=== PATIENT | male | born 1950 | race Caucasian/White ===

== ENCOUNTER → 2019-03-05 | Day surgery (SDC) | payer OTHER, MEDICARE ==
[~2019-03-05] VITALS: Ht 177.8 cm; Wt 113.4 kg
[~2019-03-05] MED LIST: ADVIL200 M1 PO; ALBUTEROL SULF 0.083% NEB SOLN 3 ML NEB NEB STA; ASPIR 8181 MG PO; ASPIRIN 81 MG CHEW TAB PO ONE; CETIRIZINE HCL10 MG PO; FUROSEMIDE INJ 10 MG/ML 4 ML VIAL IV NR; FUROSEMIDE INJ 10 MG/ML 4 ML VIAL ONE; HEPARIN 25,000U/0.45% NS 250ML 250 ML IV SCH; HEPARIN SOD (PORCINE) 1000 UNIT/ML 10ML MDV IV ONE; IBUPROFEN200 MG PO; IPRATROPIUM BROMIDE 0.02% 2.5 ML NEB NEB STA; KLOR-CON 1010 MEQ PO; LASIX40 MG PO; LISINOPRIL10 MG PO; MAGNESIUM SULFATE 2GM/50ML 50 ML IV STA; METHYLPREDNISOLONE SOD SUCC 125 MG/2ML VIAL IV STA
--- NOTE | 2019-03-05 07:05 | NUR ---
DR. KRYS CARR AT [facility] BEDSIDE
[2019-03-05 07:08] LABS: BASOPHILS # (AUTO) 0.2 (0.0-0.1); BASOPHILS % 0.8 % (0.0-1.0); EOSINOPHILS # (AUTO) 0.4 (0.0-0.4); EOSINOPHILS % 2.3 % (0.0-6.0); HEMATOCRIT 45.6 % (38.2-49.6); HEMOGLOBIN 15.3 g/dL (14.0-18.0); LYMPHOCYTES % 27.2 % (18.0-39.1); MEAN CORPUSCULAR HGB CONC 33.6 g/dL (31-35); MEAN CORPUSCULAR VOLUME 95.4 fL (81-99); MONOCYTES # (AUTO) 2.1 (0.2-0.8); MONOCYTES % 11.6 % (4.4-11.3); NEUTROPHILS # (AUTO) 10.3 (2.1-6.9); NEUTROPHILS % 56.5 % (38.7-80.0); PLATELET COUNT 240 x10e3/uL (140-360); RED BLOOD COUNT 4.78 x10e6/uL (4.3-5.7); RED CELL DISTRIBUTION WIDTH 12.4 % (11.7-14.4)
--- NOTE | 2019-03-05 07:08 | NUR ---
CORRUGATED BOX MACHINE OPERATOR STAFF AT PTS BEDSIDE
--- NOTE | 2019-03-05 07:13 | NUR ---
RESP CALLED FOR TRANSPORT TO PATIENT [facility]
--- NOTE | 2019-03-05 07:16 | Diagnostic Imaging Report ---
Examination: Single AP view of the chest. COMPARISON: 02/26/2019 INDICATION: Chest pain, shortness of breath, rapid response DISCUSSION: The lungs remain well-inflated. Interval development of prominence of the pulmonary interstitium a lower lobe predominance. Multiple juxtapleural Ariana B lines. No focal consolidation, sizable effusion, or pneumothorax. Stable cardiomediastinal contour. No acute osseous abnormality. IMPRESSION: Interval development of interstitial pulmonary edema relative to 02/26/2019. Signed by: Dr. Javier Ferrera M.D. on 03/05/2019 7:12 AM
--- NOTE | 2019-03-05 07:20 | NUR ---
PT DEPARTED UNIT WITH BIPAP IN PLACE, CLOTHES DESIGNER STAFF/RN AND RT ASSISTING
[2019-03-05 07:32] LABS: ALBUMIN 4.2 g/dL (3.5-5.0); ALBUMIN/GLOBULIN RATIO 1.4 (0.8-2.0); ANION GAP 20.1 mmol/L (8-16); CALCIUM 9.5 mg/dL (8.4-10.2); CREATININE, SERUM 2.04 mg/dL (0.72-1.25); POTASSIUM 4.1 mmol/L (3.5-5.1)
--- NOTE | 2019-03-05 07:34 | NUR ---
dr ezequiel morris informed of lactic acid 33.8.
[2019-03-05 07:40] LABS: CREATINE KINASE MB 7.3 ng/mL (0-5.0)
[2019-03-05 08:05] LABS: B-TYPE NATRIURETIC PEPTIDE2 601.9 pg/mL (0-100)
[2019-03-05 09:09] LABS: ABG PCO2 50 mmHg (41-51); ABG PH 7.28 (7.31-7.41)
[2019-03-05 09:10] LABS: ABG HCO3 24 mmol/L (23-28); ABG PO2 602 mmHg (80-105)
--- NOTE | 2019-03-05 10:54 | Pre Op History & Physical ---
PRIMARY CARE DOCTOR: Dr. Lena Carvalho. REASON FOR ADMISSION: Shortness of breath. HISTORY OF PRESENT ILLNESS: This is a 68-year-old patient of Dr. Javier Mak with abnormal stress test. The patient was scheduled for a left heart catheterization today. However, on the way there, the patient developed shortness of breath, that is why he came over here. The patient has known systolic CHF as well with an EF of 30%. The patient underwent left heart catheterization just now and was found to have left main disease, and is the process of being transferring out for bypass surgery. At this time, the patient is on a balloon pump. The patient was seen and examined in microbiological laboratory technician recovery room. At this time, the patient denies any chest pain. No nausea, no vomiting. The patient is on BiPAP for his breathing. One dose of IV Lasix was given in the emergency room. PAST MEDICAL HISTORY: 1. CHF. 2. Hypertension. MEDICATIONS: Please see medication reconciliation form. ALLERGIES: NONE. SOCIAL HISTORY: He is currently smoking. FAMILY HISTORY: Heart disease. REVIEW OF SYSTEMS: 10-point review of system reviewed, nothing else significant other than what is stated in HPI. PHYSICAL EXAMINATION: VITAL SIGNS: Temperature 97.7, pulse 122, respiratory rate 22, and blood pressure 144/97. GENERAL: No acute distress. SKIN: No rash. HEENT: Anicteric. Oropharynx is clear. NECK: Supple. LUNGS: Decreased breath sounds. HEART: Tachycardic. Normal S1, S2. ABDOMEN: Soft, nondistended. : Right groin dry. No hematoma. EXTREMITIES: No edema. MUSCULOSKELETAL: Painless range of motion. NEUROLOGICAL: Alert and oriented x3. Cranial in II through XII grossly intact. PSYCHIATRIC: No hallucination. LABORATORY DATA: White count 18, hemoglobin 15, and platelet count 240. Creatinine 2.04. Troponin is 0.2. Chest x-ray shows pulmonary edema. EKG shows ischemic changes. ASSESSMENT AND PLAN: 1. Left main disease. The patient is on balloon pump right now. Plan per Dr. Javier Mak. The patient is in the process of being transferring out to higher level care for open-heart surgery. 2. Stage 3 chronic kidney disease. We will need to monitor after contrast exposure. 3. Acute systolic heart failure, status post IV Lasix, currently on balloon pump. We will continue to monitor closely. 4. Gastrointestinal and deep venous thrombosis prophylaxis. No chemical deep venous thrombosis prophylaxis due to recent procedure. I have updated the at the bedside. MD RACHELLE Overton/ENRRIQUE /[id number] cc: [facility]
[2019-03-05 12:05] LABS: EOSINOPHILS % (MANUAL) 4 % (0-7); LYMPHOCYTES % (MANUAL) 21 % (19-48); MONOCYTES % (MANUAL) 5 % (3.4-9.0); MYELOCYTES % (MANUAL) 2 % (0-0); NEUTROPHILS % (MANUAL) 62 % (40-74); PROMYELOCYTES % (MANUAL) 1 % (0-0); RBC MORPHOLOGY COMMENT NORMAL
[2019-03-05 12:06] LABS: ANISOCYTOSIS SLIGHT; PLATELET ESTIMATE ADEQUATE; PLATELET MORPHOLOGY COMMENT FEW GIANT
--- NOTE | 2019-03-05 14:24 | Operative Report ---
DATE OF PROCEDURE: SURGEON: Javier Mak MD PROCEDURES: 1. Left heart catheterization. 2. Intra-aortic balloon pump insertion. INDICATIONS: 1. Coronary artery disease. 2. Acute systolic congestive heart failure. TECHNIQUE: The right groin was draped and prepped in the usual fashion. The area was anesthetized with lidocaine. Standard Seldinger technique was used to place a 6-[place] sheath into the right femoral artery without difficulty. A JL4 catheter was used to selectively engage the left coronary artery. A 3DRC catheter was used to selectively engage the right coronary artery. A pigtail catheter was used to perform a left ventriculogram. The 6-[place] sheath was then exchanged for an 8-[place] sheath and an intra-aortic balloon pump was placed without difficulty. The balloon pump was set to one-to-one counterpulsation. RESULTS: 1. There is an 80% stenosis of the left main trunk. 2. There is a large left anterior descending artery, which had a patent proximal stent and then about a 70% stenosis in its midportion. There was a 90% stenosis at the origin of the diagonal branch. 3. There was a small AV circumflex artery, which gave rise to a large bifurcating obtuse marginal branch. There was 90% stenosis in the AV circumflex artery before the origin of the obtuse marginal branch. 4. There was a large dominant right coronary artery with minimal disease. 5. The left ventriculogram demonstrated hypokinesis of the anterior wall and apex with an overall ejection fraction of 40%. CONCLUSION: The patient has severe three-vessel coronary artery disease with a left main trunk stenosis. Arrangements will need to be made for the patient to be transferred for coronary artery bypass graft. Javier Mak MD D[facility]/MODL /[id number]
--- NOTE | 2019-03-06 02:58 | Discharge Summary ---
FINAL DIAGNOSES: 1. Acute coronary syndrome. 2. Coronary artery disease. 3. Acute systolic congestive heart failure. PROCEDURES PERFORMED: On the patient include: 1. Left heart catheterization. 2. Intra-aortic balloon pump insertion. HOSPITAL COURSE: The patient is a 68-year-old, who came in for an elective heart catheterization, and was noted to be very short of breath. The patient was taken to the emergency room, placed on BiPAP and given some IV Lasix. The patient was then moved from the emergency room to the cardiac labor arbitrator hearing office, where catheterization was completed demonstrating an 80% stenosis in the left main trunk. An intra-aortic balloon pump was placed without difficulty. Arrangements were then made to transfer the patient to [facility] for coronary artery bypass graft. The case is discussed with the cardiovascular surgeon, Dr. Benson. MD PONCHO VoraH/MODL /[id number]
== END | disposition short-term general hospital (02) ==
LOC: ER 06:22 → CATH LAB 07:30 → ER 07:30
PROVIDERS: ATTEND Internal Medicine Cardiovascular Disease
DX: I24.9 Acute ischemic heart disease, unspecified (principal); I25.110 Atherosclerotic heart disease of native coronary artery with unstable angina pectoris; I25.2 Old myocardial infarction; R94.39 Abnormal result of other cardiovascular function study; I13.0 Hypertensive heart and chronic kidney disease with heart failure and stage 1 through stage 4 chronic kidney disease, or unspecified chronic kidney disease; N18.3 Chronic kidney disease, stage 3 (moderate); I50.21 Acute systolic (congestive) heart failure; F17.200 Nicotine dependence, unspecified, uncomplicated; Z79.82 Long term (current) use of aspirin; Z68.35 Body mass index [BMI] 35.0-35.9, adult; Z95.5 Presence of coronary angioplasty implant and graft; Z82.49 Family history of ischemic heart disease and other diseases of the circulatory system
CPT/HCPCS: 33967; 36415; 36600; 71045; 80053; 82550; 82553; 82805; 83605; 83690; 83880; 84484; 85025; 85730; 87040; 87070; 87205; 93005; 93458; 94640; 94660; 99284; C1766; C1769; C2630; J1644; J1940; J2001; J2250; J2930; J3475; J7030; J7040; Q9967; 33970; J3010

== ENCOUNTER → 2019-06-02 | Outpatient (CLI) | payer OTHER, MEDICARE ==
[~2019-06-02] MED LIST changes: -ALBUTEROL SULF 0.083% NEB SOLN 3 ML NEB NEB STA; -ASPIRIN 81 MG CHEW TAB PO ONE; -FUROSEMIDE INJ 10 MG/ML 4 ML VIAL IV NR; -FUROSEMIDE INJ 10 MG/ML 4 ML VIAL ONE; -HEPARIN 25,000U/0.45% NS 250ML 250 ML IV SCH; -HEPARIN SOD (PORCINE) 1000 UNIT/ML 10ML MDV IV ONE; -IPRATROPIUM BROMIDE 0.02% 2.5 ML NEB NEB STA; -MAGNESIUM SULFATE 2GM/50ML 50 ML IV STA; -METHYLPREDNISOLONE SOD SUCC 125 MG/2ML VIAL IV STA
--- NOTE | 2019-06-02 10:19 | Diagnostic Imaging Report ---
Chest, 2 views, 06/02/2019. History: Shortness of breath. Comparison: None available. Findings: The cardiomediastinal silhouette and pulmonary vasculature are within normal limits. The lungs are clear without evidence of consolidation or pleural effusion. Median sternotomy wires are present. There are no acute osseous or soft tissue abnormalities. Impression: No acute cardiopulmonary abnormality. Signed by: Chase Ramos on 06/02/2019 10:15 AM
== END ==
LOC: RAD 09:40
PROVIDERS: ATTEND Internal Medicine Critical Care Medicine
DX: R06.00 Dyspnea, unspecified (principal)
CPT/HCPCS: 71046